=== PATIENT | male | born 1955 | race American Indian/Alaskan Native ===

== ENCOUNTER 2021-04-25 12:19 | Emergency (ER) | payer OTHER ==
[2021-04-25] MEDS ORDERED: MORPHINE 2 MG/1 ML INJ ONE (12:44)
[2021-04-25] MEDS ORDERED: ONDANSETRON 4 MG/2 ML INJ ONE (12:44)
[2021-04-25] MEDS ORDERED: ONDANSETRON 4 MG/2 ML INJ IV ONE (12:51)
[2021-04-25] MEDS ORDERED: MORPHINE 2 MG/1 ML INJ IV ONE (12:52)
[2021-04-25] MEDS ORDERED: LIDOCAINE (1%) 10 MG/1 ML VIAL 20 ML MDV INFILTRATI ONE (12:57)
[2021-04-25] MEDS ORDERED: LIDOCAINE 1%/EPINEPHRINE 1:100,000 VIAL (20 ML) INFILTRATI NR (13:00)
[2021-04-25] MEDS ORDERED: TETANUS,DIPH,PERTUSS(ACELL) VACCINE 0.5 ML SYRINGE IM ONE (13:12)
[2021-04-25] MEDS ORDERED: ceFAZolin/NS 1 GM/50 ML 1 GM/50 ML BAG IV ONE (13:12)
--- NOTE | 2021-04-25 13:39 | Emergency Department Report ---
- General Chief Complaint: Wound/Laceration Stated Complaint: ARTERIAL BLEEDING Time Seen by Provider: 04/25/21 13:13 Source: patient, EMS Mode of arrival: Stretcher Limitations: No Limitations - History of Present Illness Initial Comments: pt cutting boxes, arrives with left wrist arterial laceration. [email or web address] applied at 1159 -: Sudden, hour(s) Extremity Location: Left: Forearm, Wrist Place: home Patient Tetanus UTD: No Context: accidental Associated Symptoms: none Treatments Prior to Arrival: bandage - Related Data Allergies Allergy/AdvReac Type Severity Reaction Status Date / Time No Known Allergies Allergy Verified 04/25/21 12:46 ED Review of Systems ROS: Stated complaint: ARTERIAL BLEEDING Other details as noted in HPI Constitutional: denies: chills, fever Eyes: denies: eye pain, eye discharge, vision change ENT: denies: ear pain, throat pain Respiratory: denies: cough, shortness of breath, wheezing Cardiovascular: denies: chest pain, palpitations Endocrine: no symptoms reported Gastrointestinal: denies: abdominal pain, nausea, diarrhea Genitourinary: denies: urgency, dysuria Musculoskeletal: denies: back pain, joint swelling, arthralgia Skin: denies: rash, lesions Neurological: denies: headache, weakness, paresthesias Psychiatric: denies: anxiety, depression Hematological/Lymphatic: denies: easy bleeding, easy bruising ED Past Medical Hx - Past Medical History Previous Medical History?: No ED Physical Exam - General Limitations: No Limitations General appearance: alert, in no apparent distress - Head Head exam: Present: atraumatic, normocephalic - Eye Eye exam: Present: normal appearance - ENT ENT exam: Present: mucous membranes moist - Neck Neck exam: Present: normal inspection - Respiratory Respiratory exam: Present: normal lung sounds bilaterally. Absent: respiratory distress - Cardiovascular Cardiovascular Exam: Present: regular rate, normal rhythm. Absent: systolic murmur, diastolic murmur, rubs, gallop - GI/Abdominal GI/Abdominal exam: Present: soft, normal bowel sounds - Rectal Rectal exam: Present: deferred - Extremities Exam Extremities exam: Present: normal inspection - Expanded Upper Extremity Exam Left Shoulder Exam: Present: laceration - Back Exam Back exam: Present: normal inspection - Neurological Exam Neurological exam: Present: alert, oriented X3 - Psychiatric Psychiatric exam: Present: normal affect, normal mood - Skin Skin exam: Present: warm, dry, intact, normal color. Absent: rash ED Course Vital Signs 04/25/21 04/25/21 04/25/21 12:22 13:28 13:30 Temperature 98.4 F 98.3 F Pulse Rate 72 77 Respiratory 16 20 Rate Blood Pressure 164/92 129/76 [Left] O2 Sat by Pulse 100 97 97 Oximetry - Laceration /Wound Repair Left Wrist Wound Location: upper extremity Wound Explored: clean Betadine Prep?: Yes Anesthesia: 1% Lidocaine Volume Anesthetic (ccs): 3 Wound Repaired With: sutures Suture Size/Type: 3:0 Number of Sutures: 3 Layer Closure?: No Sterile Dressing Applied?: Yes ED Medical Decision Making - Medical Decision Making bleeding contorlled with pressure stitches placed tetanus abx and pain meds Critical Care Time: Yes Critical care time in (mins) excluding proc time.: 35 Critical care attestation.: If time is entered above; I have spent that time in minutes in the direct care of this critically ill patient, excluding procedure time. Critical Care Time: 35 ED Disposition Clinical Impression: Laceration of right forearm, Injury of left radial artery Disposition: HOME / SELF CARE / HOMELESS Is pt being admited?: No Does the pt Need Aspirin: No Condition: Stable
[2021-04-25] MEDS ORDERED: SODIUM CHLORIDE 0.9% 100 ML IVPB IV SCH (14:00)
[2021-04-25 14:23] VITALS: BP 168/76
== END 2021-04-25 15:28 | disposition home or self-care (01) ==
LOC: ED 12:19
DX: S61.512A Laceration without foreign body of left wrist, initial encounter (principal); S65.112A Laceration of radial artery at wrist and hand level of left arm, initial encounter; W45.8XXA Other foreign body or object entering through skin, initial encounter; Y93.89 Activity, other specified; Y92.89 Other specified places as the place of occurrence of the external cause; Y99.8 Other external cause status
CPT/HCPCS: 12001; 90471; 90715; 96365; 96375; 99283; J0690; J2270; J2405; J3490; 96374